=== PATIENT | female | born 1990 | race Caucasian/White ===

== ENCOUNTER 2019-10-17 12:15 | Emergency (ER) | payer BC, SELFPAY ==
[2019-10-17 12:25] VITALS: BP 130/68; PULSE 110; RESP 16; TEMP 37.1; O2SAT 99
--- NOTE | 2019-10-17 12:31 | ED.URI ---
HPI - URI/Sore Throat General Chief Complaint: Upper Respiratory Infection Stated Complaint: nasal congestion and cough Time Seen by Provider: 10/17/19 12:31 Source: patient and RN notes reviewed History of Present Illness HPI Narrative: Patient is a 29-year-old female who presents the urgent care with complaints of nasal congestion, cough, scratchy throat and runny nose. Patient states that started approximately 3 days ago. Patient states her kids have also had some runny nose and cough as well. Patient does live in [place] and has been on the area for approximately the last 3 weeks. Denies of any known fever, nausea, vomiting, shortness of breath. Patient states that she did cough pretty hard last night and is having some back pain. Patient states that her main issue is that she was unsure of what to use [id number] due to breast-feeding. No other acute complaints. No acute distress noted. Patient read the plan of care. Related Data Home Medications Medication Instructions Recorded Confirmed No Home Medications 10/17/19 10/17/19 Allergies Allergy/AdvReac Type Severity Reaction Status Date / Time No Known Allergies Allergy Verified 10/17/19 12:36 Review of Systems Review of Systems: Narrative: CONSTITUTIONAL: Denies fever, chills, or sweats. EYES: Denies visual changes, redness, or discharge. ENT: Reports of nasal congestion, sinus pressure, runny nose, scratchy throat CARDIOVASCULAR: Denies chest pain, palpitations, or edema. RESPIRATORY: Ports of intermittent cough without dyspnea GASTROINTESTINAL: Denies abdominal pain, nausea, vomiting, or diarrhea. GENITOURINARY: Denies dysuria or hematuria. SKIN: Denies rash or itching. MUSCULOSKELETAL: Denies back pain, joint pain, or myalgia. NEUROLOGIC: Denies headache, numbness, or weakness. All other systems reviewed are negative, except as documented in HPI. PMFSH Comments At the time of my signature, I reviewed and agree with the nursing past medical, surgical, social, and family history. There is no relevant family history pertinent to the patient complaint. Exam Narrative: Exam Narrative: GENERAL: This is a well-nourished, well-developed patient, in no apparent distress. HEAD: normocephalic, atraumatic. Mild frontal sinus pressure EYES: PERRL. Sclera clear/white. Vision is grossly intact. EARS: External ears normal, auditory canals clear and without drainage, TMs normal without perforation. Hearing grossly intact. NOSE: External nose normal with no obvious nasal discharge, mildly erythemic bilateral nares with clear rhinorrhea. THROAT: Mucous membranes moist, posterior pharynx clear. Mild postnasal drainage NECK: Neck supple CARDIOVASCULAR: Regular rate and rhythm without murmurs, gallops, or rubs. RESPIRATORY: Clear to auscultation. Breath sounds equal bilaterally. No wheezes, rales, or rhonchi. SKIN: warm, intact with no suspicious lesions or rash, good texture and turgor. NEURO: awake, alert, and oriented to person, place and time. There were no obvious focal neurologic abnormalities. EXTREMITIES: No clubbing, cyanosis, or edema. Course Vital Signs Vital signs: Vital Signs Temperature 98.8 F 10/17/19 12:25 Pulse Rate 110 H 10/17/19 12:25 Respiratory Rate 16 10/17/19 12:25 Blood Pressure 130/68 10/17/19 12:25 Pulse Oximetry 99 10/17/19 12:25 Temperature 98.8 F 10/17/19 12:25 Pulse Rate 110 H 10/17/19 12:25 Respiratory Rate 16 10/17/19 12:25 Blood Pressure 130/68 10/17/19 12:25 Pulse Oximetry 99 10/17/19 12:25 Reviewed MDM - URI/Sore Throat MDM Narrative Medical decision making narrative: Advised the patient to use [id number] medication such as Zyrtec or Benadryl in conjunction with Flonase nasal spray for congestion/sinus pressure relief. Increase water intake. Do not sleep with the windows open or a fan directly on your face. Use humidifier at night. Expect symptoms to be present for the next several days
== END 2019-10-17 12:50 | disposition home or self-care (01) ==
PROVIDERS: Emergency Provider Nurse Practitioner Family
DX: J32.9 Chronic sinusitis, unspecified (principal)
CPT/HCPCS: 99211; G0463